=== PATIENT | male | born 2000 | race Hispanic/Latino ===

== ENCOUNTER 2019-01-28 19:16 | Emergency (ER) | payer SELFPAY ==
--- NOTE | 2019-01-28 20:43 | RAD ---
RADIOGRAPH CHEST 2 VIEWS: DATE: 01/28/2019 HISTORY: 18-year-old male status post acute chest trauma. FINDINGS: The lungs are clear. The cardiomediastinal silhouette and hilar shadows appear normal. There is no pl eural effusion or pneumothorax. No osseous abnormality is identified. IMPRESSION: Normal
[2019-01-28] MEDS ORDERED: Ibuprofen 800 MG TAB ONE ×2 (21:05→21:07)
== END 2019-01-28 21:34 | disposition home or self-care (01) ==
LOC: ERS 19:16
DX: S20.211A Contusion of right front wall of thorax, initial encounter (principal); W55.32XA Struck by other hoof stock, initial encounter
CPT/HCPCS: 71046